=== PATIENT | male | born 1975 | race Two or more races ===

== ENCOUNTER 2019-12-21 18:41 | Inpatient (IN) | payer MEDICAID, SELFPAY ==
[~2019-12-21] VITALS: Ht 165.1 cm; Wt 89.5 kg
[2019-12-21] MEDS ORDERED: SODIUM CHLORIDE 0.9% 1,000 ML IV SCH (19:13)
[2019-12-21] MEDS ORDERED: ACETAMINOPHEN 500 MG TAB PO PRN (19:15)
[2019-12-21] MEDS: ASCORBIC ACID 500 MG TAB PO SCH (19:22)
[2019-12-21] MEDS: ALBUTEROL SULF HFA 90MCG INH 200DOSE IN SCH (23:22)
[2019-12-21] MEDS ORDERED: ALBUTEROL SULF 2.5 MG/0.5ML(0.5%) NEB SOLN NEB ONE (23:30)
[2019-12-21] MEDS ORDERED: IPRATROPIUM BROM 0.5 MG/2.5ML INH SOL NEB ONE (23:30)
[2019-12-21 23:38] LABS: Basophils # (auto) 0.1 10 ^3/uL (0-0.2); Basophils % (auto) 0.6 % (0.0-2.0); Monocytes # (auto) 0.5 10 ^3/uL (0-1.3); Red Cell Distribution Width 14.2 % (11.8-14.3); White Blood Cell 9.7 10^3/uL (4.4-10.8)
[2019-12-21 23:40] LABS: Eosinophils # (auto) 0.4 10 ^3/uL (0-0.8); Eosinophils % (auto) 4.6 % (0.0-7.0); Hematocrit 52.9 % (41.0-53.0); Hemoglobin 18.1 g/dL (13.5-17.5); Lymphocytes # (auto) 2.3 10 ^3/uL (0.4-5.4); Lymphocytes % (auto) 23.7 % (10.0-50.0); Mean Corpuscular Hemoglobin 31.2 pg (28.0-32.0); Mean Corpuscular Hgb Conc. 34.2 g/dL (32.0-36.0); Mean Corpuscular Volume 91.1 fL (80.0-100.0); Monocytes % (auto) 5.2 % (0.0-12.0); Neutrophils # (auto) 6.4 10 ^3/uL (1.6-8.6); Neutrophils % (auto) 65.9 % (37.0-80.0); Nucleated Red Blood Cells % 0.3 %; Platelet Count (auto) 210 10^3/uL (140-450)
[2019-12-21] MEDS: AZITHROMYCIN 250 MG TAB PO SCH (23:56)
[2019-12-21 23:59] LABS: Albumin 4.3 g/dL (3.4-5.0); Calcium 9.6 mg/dL (8.5-10.1); Magnesium 2.7 mg/dL (1.6-2.6); Potassium 3.6 mmol/L (3.5-5.1)
[2019-12-22] MEDS: ZINC SULFATE 220mg CAP or TAB PO SCH ×2 (00:01→10:00)
[2019-12-22] MEDS: CHOLECALCIFEROL (VITD3) 1,000UNIT=25mCg TAB PO SCH ×2 (00:02→10:00)
[2019-12-22 00:03] LABS: BUN/Creatinine Ratio 16.9; Bilirubin, Total 0.5 mg/dL (0.2-1.0); CRP High Sensitivity 0.38 mg/dL (< 0.3); Total Protein 8.7 g/dL (6.4-8.2)
[2019-12-22] MEDS ORDERED: NITROGLYCERIN 0.4 MG SL TAB SL PRN (00:30)
[2019-12-22] MEDS ORDERED: TEMAZEPAM 15 MG CAP PO PRN (00:30)
[2019-12-22] MEDS ORDERED: MORPHINE SULF INJ 2 MG/ML SYRINGE 1ML IV PRN (00:30)
[2019-12-22] MEDS ORDERED: ONDANSETRON HCL 4 MG/2 ML VIAL IV PRN (00:30)
[2019-12-22 02:30] VITALS: BP 139/71
[2019-12-22 07:03] LABS: Basophils # (auto) 0.1 10 ^3/uL (0-0.2); Basophils % (auto) 0.8 % (0.0-2.0); Eosinophils # (auto) 0.9 10 ^3/uL (0-0.8); Eosinophils % (auto) 11.8 % (0.0-7.0); Hematocrit 47.5 % (41.0-53.0); Hemoglobin 15.9 g/dL (13.5-17.5); Lymphocytes # (auto) 2.5 10 ^3/uL (0.4-5.4); Lymphocytes % (auto) 31.8 % (10.0-50.0); Mean Corpuscular Hemoglobin 30.5 pg (28.0-32.0); Mean Corpuscular Hgb Conc. 33.5 g/dL (32.0-36.0); Monocytes # (auto) 0.6 10 ^3/uL (0-1.3); Monocytes % (auto) 7.2 % (0.0-12.0); Neutrophils # (auto) 3.8 10 ^3/uL (1.6-8.6); Neutrophils % (auto) 48.4 % (37.0-80.0); Nucleated Red Blood Cells % 0.2 %; Platelet Count (auto) 184 10^3/uL (140-450); Red Blood Cells 5.22 10^6/uL (4.5-5.90); Red Cell Distribution Width 13.9 % (11.8-14.3); White Blood Cell 7.8 10^3/uL (4.4-10.8)
[2019-12-22 07:22] LABS: Albumin 3.4 g/dL (3.4-5.0); Calcium 8.8 mg/dL (8.5-10.1); Potassium 3.6 mmol/L (3.5-5.1)
[2019-12-22 07:28] LABS: BUN/Creatinine Ratio 16.5; Bilirubin, Total 0.5 mg/dL (0.2-1.0); Total Protein 7.3 g/dL (6.4-8.2)
[2019-12-22] MEDS: ALBUTEROL SULF HFA 90MCG INH 200DOSE IN SCH ×3 (08:45→22:40)
--- NOTE | 2019-12-22 08:45 | NUR ---
Respiratory note: MDI ADMINISTERED, PT VITALS ARE STABLE. PT IS ON 2 L NASAL CANNULA. WILL CONTINUE TO MONITOR PT.
[2019-12-22 09:00] VITALS: BP 132/87
[2019-12-22] MEDS ORDERED: AZITHROMYCIN DIHYD 500 MG VIAL IV SCH (10:00)
[2019-12-22 10:36] VITALS: BP 139/71
[2019-12-22] MEDS: ENOXAPARIN SOD 40 MG/0.4 ML SYRINGE SC SCH ×2 (11:51)
[2019-12-22] MEDS: AZITHROMYCIN 250 MG TAB PO SCH (11:52)
[2019-12-22] MEDS: FAMOTIDINE 20 MG TAB PO SCH ×2 (11:52→21:02)
[2019-12-22] MEDS: ASCORBIC ACID 500 MG TAB PO SCH (11:52)
--- NOTE | 2019-12-22 15:07 | NUR ---
Pt is currently listed as not having current insurance. Pt states they are currently unemployed. Discussed with pt eligibility options for [employer] coverage based on their current situation. Pt referred to Cain Escalera, [employer] Teacher, to assist with process for [employer] Insurance coverage. Advised pt that additional information regarding D/C planning would be provided prior to their discharge. Will follow up with Cain regarding the insurance status. Addendum: 12/22/19 at 1515 by SIN MAGAÑA SS Spoke to pt on phone as he is in isolation.
[2019-12-22 17:00] VITALS: BP 138/82
--- NOTE | 2019-12-22 20:00 | NUR ---
Opening Shift Note Assumed care of patient, awake and alert x4. Patient denies pain or shortness of breath at this time. Instructed on plan of care and to call for assistance as needed. Bed is locked in lowest position, side rails x 2 are up, and call light is within reach.
[2019-12-22 22:30] VITALS: BP 133/85
[2019-12-22] MEDS ORDERED: AMOXICILLIN/CLAVUL 875 MG TAB PO ONE (22:30)
[2019-12-23 02:07] VITALS: BP 129/82
[2019-12-23 06:00] VITALS: BP 104/73
[2019-12-23] MEDS: ALBUTEROL SULF HFA 90MCG INH 200DOSE IN SCH (06:17)
--- NOTE | 2019-12-23 07:35 | NUR ---
Opening Shift Note Assumed care of patient, awake and alert and oriented x4. No S/S of distress/SOB or pain reported at this time, currently on 2L via NC, on continuos telemetry and pulse oximeter Instructed on POC and to call for assist PRN, call light within reach, will continue to monitor for changes Q1hr and PRN.
--- NOTE | 2019-12-23 07:53 | NUR ---
0600 SCHEDULED MDI TX ADMINISTERED BY RN. PT IS ON 2LNC, SPO2 93%, HR 76, RR 20. RESPIRATIONS AR EVEN AND UNLABORED.
[2019-12-23 08:00] VITALS: BP 127/83
[2019-12-23] MEDS: AMOXICILLIN/CLAVUL 875 MG TAB PO SCH ×2 (10:00→21:27)
[2019-12-23] MEDS: ENOXAPARIN SOD 40 MG/0.4 ML SYRINGE SC SCH (10:09)
[2019-12-23] MEDS: ZINC SULFATE 220mg CAP or TAB PO SCH (10:10)
[2019-12-23] MEDS: FAMOTIDINE 20 MG TAB PO SCH ×2 (10:11→21:27)
[2019-12-23] MEDS: ASCORBIC ACID 500 MG TAB PO SCH (10:12)
[2019-12-23] MEDS: CHOLECALCIFEROL (VITD3) 1,000UNIT=25mCg TAB PO SCH (10:12)
[2019-12-23] MEDS: AZITHROMYCIN 250 MG TAB PO SCH (10:12)
[2019-12-23 10:51] LABS: Urine Bacteria NONE SEEN /hpf (None Seen); Urine Blood Negative /uL (Negative); Urine Mucus MANY (None Seen); Urine Specific Gravity 1.035 (1.001-1.035); Urine WBC 17 /hpf (0 - 3)
--- NOTE | 2019-12-23 13:50 | NUR ---
INCENTIVE SPIROMETER INSTRUCTIONS PROVIDED ON HOW TO USE IS, PT ABLE TO RETURN DEMONSTRATION AND RAISED BAR TO 2500, NO SUDDEN C/O SOB AND INSTRUCTED TO USE Q1HR WA, PT VERBALIZED UNDERSTANDING, CONT CARE
[2019-12-23 14:00] VITALS: BP 137/71
--- NOTE | 2019-12-23 14:45 | NUR ---
AT BEDSIDE DR PADILLA AT BEDSIDE, DISCUSSING POC WITH PT, PT AXOX4, ORDERS TO DISCONTINUE O2, O2 REMOVED, ASSESSED O2 ON RA AND PULSE OX 94%, PT INSTRUCTED TO CALL IMMEDIATELY IF HE HAS SOB, PT CURRENTLY ON CONTINUOS PULSE OX,CALL LIGHT WITHIN REACH, CONT CARE
--- NOTE | 2019-12-23 15:00 | NUR ---
O2 APPLIED @2L VIA NC NOTICED MONITOR O2 DROP TO 87% ON RA, ASSESSED PATIENT AND NO C/O SOB AT THIS TIME, INFORMED PT THAT O2 HAD DROPPED AND APPLIED NASAL CANULA @2L, CONT CARE
--- NOTE | 2019-12-23 16:04 | NUR ---
Unable to make contact with pt. (did not answer phone). Pt in isolation with Covid19 Addendum: 12/23/19 at 1629 by SIN CHARLES The above information is not on the correct pt.
[2019-12-23 18:00] VITALS: BP 159/93
--- NOTE | 2019-12-23 18:15 | NUR ---
BP RE-ASSESS BP 164/100, PT ASYMPTOMATIC, STATES HE HAS JUST RETURNED FROM BATHROOM, CURRENT BP 159/93M P 82, STATES HE DOES NOT TAKE ANY MEDICATION FROM HOME AND STATES " I THINK ITS JUST ANXIETY", CONT TO MONITOR
--- NOTE | 2019-12-23 20:00 | NUR ---
Opening Shift Note Assumed care of patient, awake and alert x4. Patient denies pain or shortness of breath at this time. Instructed on plan of care and to call for assistance as needed, patient verbalized understanding. Instructed and educated patient on how to use the incentive spirometer. Patient verbalized understanding and returned demonstration. Bed is locked in lowest position, side rails x 2 are up, and call light is within reach.
[2019-12-23 21:30] VITALS: BP 130/89
[2019-12-24 02:00] VITALS: BP 123/84
--- NOTE | 2019-12-24 02:48 | NUR ---
COVID RESULTS This RN was notified by charge nurse Karine that patient's covid results came back negative. Patient to be transferred to room 281 B with Estefany ORR.
--- NOTE | 2019-12-24 02:49 | NUR ---
Report Report given to Estefany ORR.
--- NOTE | 2019-12-24 02:50 | NUR ---
Notified by Franck, air shovel operator about patients negative COVID result. Karine buenrostro RN aware.
--- NOTE | 2019-12-24 03:35 | NUR ---
Transfer Patient transferred to room 281B with all personal belongings. No signs/symptoms noted upon departure. Patient care endorsed to Estefany ORR.
--- NOTE | 2019-12-24 03:45 | NUR ---
Assumed care of patient Received report from Ana ORR. Informed by RN that patient is negative for COVID-19. Pt transferred to 281B via wheelchair without incident. All personal belongings at pt bedside. Pt is awake and alert. No S/S of distress/SOB or pain. Instructed on POC and to call for assist PRN. Bed in lowest locked position, call light within reach, side rails up x2. Will continue to monitor for changes Q1hr and PRN.
[2019-12-24 05:00] VITALS: BP 126/68
[2019-12-24 09:00] VITALS: BP 119/73
[2019-12-24] MEDS: ZINC SULFATE 220mg CAP or TAB PO SCH (09:41)
[2019-12-24] MEDS: FAMOTIDINE 20 MG TAB PO SCH (09:41)
[2019-12-24] MEDS: AMOXICILLIN/CLAVUL 875 MG TAB PO SCH (09:41)
[2019-12-24] MEDS: AZITHROMYCIN 250 MG TAB PO SCH (09:42)
[2019-12-24] MEDS: CHOLECALCIFEROL (VITD3) 1,000UNIT=25mCg TAB PO SCH (09:42)
[2019-12-24] MEDS: ASCORBIC ACID 500 MG TAB PO SCH (09:42)
[2019-12-24] MEDS: ENOXAPARIN SOD 40 MG/0.4 ML SYRINGE SC SCH (09:47)
[2019-12-24] MEDS ORDERED: hydrOXYchloroQUINE SULFATE 200 MG TAB PO SCH (10:00)
[2019-12-24 13:00] VITALS: BP_SYST 110; BP_SYST 125; BP_DIAS 60; BP_DIAS 76
[2019-12-24 17:00] VITALS: BP 142/78
--- NOTE | 2019-12-24 17:40 | NUR ---
Discharge Went over discharge paperwork with patient using race car driver as patient speaks [place]. All questions answered. Gave prescription to patient. Removed IV intact with no problems. Removed telemetry box and sent to ICU per hospital protocol. Patient took all personal belongings and left in private vehicle.
== END 2019-12-24 17:30 | disposition home or self-care (01) | DRG 189 ==
LOC: ER 18:41 → TELE 18:42 → TELE-EAST 12-22 02:30 → TELE-WESTW 12-24 03:49
PROVIDERS: ADMIT Nurse Practitioner; ATTEND Internal Medicine
DX: J96.01 Acute respiratory failure with hypoxia (principal); J45.901 Unspecified asthma with (acute) exacerbation; J02.0 Streptococcal pharyngitis; J20.9 Acute bronchitis, unspecified; Z79.899 Other long term (current) drug therapy; Z79.51 Long term (current) use of inhaled steroids; Z20.828 Contact with and (suspected) exposure to other viral communicable diseases
CPT/HCPCS: 36415; 71045; 80053; 81001; 82728; 83605; 83615; 83735; 83880; 84443; 85025; 85379; 86141; 87040; 87070; 87205; 87804; 87880; 93005; 94640; G0378